=== PATIENT | male | born 1965 | race Caucasian/White ===

== ENCOUNTER → 2016-07-26 | Outpatient (CLI) | payer MEDICAID ==
[~2016-07-26] MED LIST: ADULT LOW DOSE81 MG PO; ALBUTEROL-200 PUFFS/ IH; BENZONATATE100 MG PO; CIPRODEX 0.3%-7.5 ML OT; CLOPIDOGREL75 MG PO; DOLOBID 500MG500 MG PO; FLEXERIL10 MG PO; FLUTICASONE 50M16 GM; INDOCIN25 M1 PO; LIPITOR40 MG PO; LISINOPRIL10 MG PO; LORTAB 5/3251 TAB PO; METFORMIN1000 MG PO; NAPROXEN SODIU500 MG PO; NEURONTIN100 MG PO; NOMEDS; NORCO 325 MG-51 TAB PO; ROBAXIN-750750 MG PO; SINGULAIR 10 MG10 MG PO; ULTRACET 325 MG1 TAB PO
[2016-07-26 08:46] LABS: LYMPH # 1.9 K/mm3 (0.7-4.5); LYMPH % 24.7 % (10-50)
[2016-07-26 09:10] LABS: HEMOGLOBIN 12.6 g/dL (14.1-18.0)
[2016-07-26 10:56] LABS: BUN 14 mg/dL (7-18)
[2016-07-26 11:42] LABS: GFR (ESTIMATED) 70 ML/MIN (>60)
[2016-07-27 09:38] LABS: Creatinine, Urine 41.1 mg/dL (Not Estab.); Microalbumin, Urine <3.0 ug/mL (Not Estab.)
== END ==
LOC: LAB 08:26
PROVIDERS: Nurse Practitioner Family
DX: E11.9 Type 2 diabetes mellitus without complications (principal)

== ENCOUNTER → 2016-10-22 | Outpatient (CLI) | payer MEDICAID ==
[2016-10-24 10:39] LABS: Creatinine, Urine 15.4 mg/dL (Not Estab.); Microalbumin, Urine <3.0 ug/mL (Not Estab.)
== END ==
LOC: LAB 14:06
PROVIDERS: Nurse Practitioner Family
DX: E11.9 Type 2 diabetes mellitus without complications (principal)

== ENCOUNTER → 2016-10-23 | Outpatient (CLI) | payer MEDICAID ==
[2016-10-23 12:46] LABS: HEMOGLOBIN 12.3 g/dL (14.1-18.0); LYMPH # 1.6 K/mm3 (0.7-4.5); LYMPH % 31.3 % (10-50)
[2016-10-23 15:23] LABS: BUN 10 mg/dL (7-18)
[2016-10-23 15:28] LABS: GFR (ESTIMATED) 78 ML/MIN (>60)
[2016-10-24 10:39] LABS: Creatinine, Urine 31.1 mg/dL (Not Estab.); Microalbumin, Urine <3.0 ug/mL (Not Estab.)
== END ==
LOC: LAB 12:04
PROVIDERS: Nurse Practitioner Family
DX: E11.9 Type 2 diabetes mellitus without complications (principal)

== ENCOUNTER → 2017-03-08 | Outpatient (CLI) | payer MEDICAID ==
[~2017-03-08] MED LIST changes: +PRILOSEC20 M1 PO
[2017-03-08 13:46] LABS: HEMOGLOBIN 11.5 g/dL (14.1-18.0); LYMPH # 1.4 K/mm3 (0.7-4.5); LYMPH % 29.1 % (10-50)
[2017-03-08 15:12] LABS: BUN 9 mg/dL (7-18)
[2017-03-08 15:13] LABS: GFR (ESTIMATED) 70 ML/MIN (>60)
== END ==
LOC: LAB 12:54
PROVIDERS: Nurse Practitioner Family
DX: E11.9 Type 2 diabetes mellitus without complications (principal); E66.3 Overweight

== ENCOUNTER 2017-03-19 11:37 | Emergency (ER) | payer MEDICAID ==
[~2017-03-19] VITALS: Ht 162.6 cm; Wt 64.4 kg
[~2017-03-19 11:37] MED LIST changes: -PRILOSEC20 M1 PO
[2017-03-19] MEDS ORDERED: PRILOSEC20 M1 PO (11:51)
--- NOTE | 2017-03-19 11:51 | Urgent Treatment Center Report ---
History of Present Issue Date/Time Seen by Provider 03/19/17 1150 Visit Reason Pt arrived:Walked Presenting Problem:PT STATES PAIN AND DRAINAGE TO LEFT EYE THAT BEGAN YESTERDAY. STATES EYE WAS SWELLED SHUT THIS MORNING Location if Accident: Onset of symptoms date/time:03/18/17/ or onset unknown for:MEDICAL HX UNKNOWN Have you (or family members/close friends) recently traveled outside the [facility]? N If Yes, where/when: Have you had exposure to infectious disease within the past month? TB? Other? Specify: Here w/ c/o left eye redness, drainage, and pain. Mild yesterday. Woke up worse this morning w/ eye crusted. Pain worsening. now behind left eye "feels like it is drawing up". Denies vision change, fever, malaise. No known injury. Sees Dr. Carter at [facility] for glasses. Didn't think to be seen there. No treatment prior to arrival Source patient Exam Limitations no limitations ALLERGIES Coded Allergies: No Known Allergies (08/11/15) Home Medications Reported Medications Lisinopril 10 MG PO DAILY #30 CLOPIDOGREL BISULFATE (Clopidogrel 75MG) 75 MG PO DAILY Atorvastatin Calcium (Atorvastatin) 40 MG PO DAILY Albuterol (Albuterol-Hfa Inhaler) 2 PUFF IH Q4HP PRN SHORTNESS OF BREATHE Aspirin (Adult Low Dose Aspirin EC) 81 MG PO DAILY Gabapentin (Neurontin) 600 MG PO TID METFORMIN HCL (Metformin) 500 MG PO BID OMEPRAZOLE MAGNESIUM (Prilosec 20MG) 20 MG PO BID History Medical History General CAD? No Angina: Yes MT: No Hypertension? Yes Hyperlipidemia? Yes CHF? No DVT? No PE? No COPD? No Asthma? No Anemia? No GERD? Yes Gastric ulcers? No GI Bleed? No Hernia? No Thyroid Problems? No Hypothyroidism? No CVA? No Seizures? No Diabetes? No Renal Insuffiency? No UTI? No Stones? No BPH? No GB Disease: No Nephritic Syndrome? No Asplenia? No Hepatitis? No Sickle Cell Disease? No Arthritis? Yes Migraines? No Cataracts? No Glaucoma? No MRSA? No HIV? No TB? No Anxiety? No Depression? No Cancer? No More? No Immunization HX DT/Tetanus 1-4 Years Ago 2014-16FSN Pneumonia Received In Past Surgical Hx Previous Surgery?Y BY PASS TY LEGS 08/21 EAR RT CABG AUG 2014 STENT TO L LEG Family History Family HX Diabetes Yes CAD Yes Hypertension Yes Hyperlipidemia Yes Cancer Yes TB No Social History Smoking Hx Smoker: Former Smoker Tobacco: No Packs/day 1 1/2 - 2 Packs Alcohol Alcohol: Yes Review of Systems All Other Systems Reviewed and Negative Constitutional see HPI Eyes see HPI, inflammation (left top lid), denies foreign body sensation, denies photophobia ENT see HPI. denies: ear pain, nose discharge, nose congestion, throat pain. Psychiatric/Neurological headache (mild, starting this morning), denies other (dizziness) Physical Exam Vital Signs Vital Signs Date Time Temp Pulse Resp B/P Pulse O2 O2 Flow FiO2 Ox Delivery Rate 03/19 1223 98.0 89 20 139/80 97 03/19 1144 98.0 89 20 139/80 97 General Appearance normal appearance, no obvious distress although eye redness and rapid blinking immediately obvious Eye Exam - right eye normal exam, left eye eyelid inflammation (mild left top lid), left eye other (see comment), bilateral eye PERRL, bilateral eye EOMI Comment left eye: mild scleral and conjunctival redness, evidence of crusting top and bottom lashes, blinking frequently Ear, Nose, Throat normal ENT inspection Respiratory Status No: respiratory distress. Cardiovascular no peripheral edema Neurologic alert, oriented x 3 Skin normal color, warm/dry Medical Decision Making LABS/Meds/Orders Pt receiving controlled substance in ED? No Consult MD Physician Consult Consult/PCP Dr. Carter, opthamologist Time Called 1200 Reason Pt. Condition Comments Providers are out to lunch. receptionist nurse feels certain he would want to send pt rather then pt be seen in ER. Have pt report to office to be seen promptly when they return from lunch. Departure Departure Time of Disposition 1217 Disposition DC Home or Self Care(routine) Clinical Impression Primary Impression: Redness of left eye Secondary Impressions: Left eye pain Condition STABLE Referrals NO REFERRAL Dr. Carter: [facility]: Can see you now. report directly to office and they will work you in as opposed to going to the ER for further evaluation. Patient Instructions DI for Eye Pain Additional Instructions Report directly to [facility] as you need further evaluation and management and they are willing to work you in as opposed to sending you to the ER. Based on [facility] guidelines, I am unable to provide that here. Discharge Counseling Counseled pt/family regarding diagnosis, follow up needs at [phone]
--- NOTE | 2017-03-19 11:51 | Urgent Treatment Center Report ---
History of Present Issue Date/Time Seen by Provider 03/19/17 1150 Visit Reason Pt arrived:Walked Presenting Problem:PT STATES PAIN AND DRAINAGE TO LEFT EYE THAT BEGAN YESTERDAY. STATES EYE WAS SWELLED SHUT THIS MORNING Location if Accident: Onset of symptoms date/time:03/18/17/ or onset unknown for:MEDICAL HX UNKNOWN Have you (or family members/close friends) recently traveled outside the [facility]? N If Yes, where/when: Have you had exposure to infectious disease within the past month? TB? Other? Specify: Here w/ c/o left eye redness, drainage, and pain. Mild yesterday. Woke up worse this morning w/ eye crusted. Pain worsening. now behind left eye "feels like it is drawing up". Denies vision change, fever, malaise. No known injury. Sees Dr. Carter at [facility] for glasses. Didn't think to be seen there. No treatment prior to arrival Source patient Exam Limitations no limitations ALLERGIES Coded Allergies: No Known Allergies (08/11/15) Home Medications Reported Medications Lisinopril 10 MG PO DAILY #30 CLOPIDOGREL BISULFATE (Clopidogrel 75MG) 75 MG PO DAILY Atorvastatin Calcium (Atorvastatin) 40 MG PO DAILY Albuterol (Albuterol-Hfa Inhaler) 2 PUFF IH Q4HP PRN SHORTNESS OF BREATHE Aspirin (Adult Low Dose Aspirin EC) 81 MG PO DAILY Gabapentin (Neurontin) 600 MG PO TID METFORMIN HCL (Metformin) 500 MG PO BID OMEPRAZOLE MAGNESIUM (Prilosec 20MG) 20 MG PO BID History Medical History General CAD? No Angina: Yes [place]: No Hypertension? Yes Hyperlipidemia? Yes CHF? No DVT? No PE? No COPD? No Asthma? No Anemia? No GERD? Yes Gastric ulcers? No GI Bleed? No Hernia? No Thyroid Problems? No Hypothyroidism? No CVA? No Seizures? No Diabetes? No Renal Insuffiency? No UTI? No Stones? No BPH? No GB Disease: No Nephritic Syndrome? No Asplenia? No Hepatitis? No Sickle Cell Disease? No Arthritis? Yes Migraines? No Cataracts? No Glaucoma? No MRSA? No HIV? No TB? No Anxiety? No Depression? No Cancer? No More? No Immunization HX DT/Tetanus 1-4 Years Ago 2014-16FSN Pneumonia Received In Past Surgical Hx Previous Surgery?Y BY PASS TY LEGS 08/21 EAR RT CABG AUG 2014 STENT TO L LEG Family History Family HX Diabetes Yes CAD Yes Hypertension Yes Hyperlipidemia Yes Cancer Yes TB No Social History Smoking Hx Smoker: Former Smoker Tobacco: No Packs/day 1 1/2 - 2 Packs Alcohol Alcohol: Yes Review of Systems All Other Systems Reviewed and Negative Constitutional see HPI Eyes see HPI, inflammation (left top lid), denies foreign body sensation, denies photophobia ENT see HPI. denies: ear pain, nose discharge, nose congestion, throat pain. Psychiatric/Neurological headache (mild, starting this morning), denies other (dizziness) Physical Exam Vital Signs Vital Signs Date Time Temp Pulse Resp B/P Pulse O2 O2 Flow FiO2 Ox Delivery Rate 03/19 1223 98.0 89 20 139/80 97 03/19 1144 98.0 89 20 139/80 97 General Appearance normal appearance, no obvious distress although eye redness and rapid blinking immediately obvious Eye Exam - right eye normal exam, left eye eyelid inflammation (mild left top lid), left eye other (see comment), bilateral eye PERRL, bilateral eye EOMI Comment left eye: mild scleral and conjunctival redness, evidence of crusting top and bottom lashes, blinking frequently Ear, Nose, Throat normal ENT inspection Respiratory Status No: respiratory distress. Cardiovascular no peripheral edema Neurologic alert, oriented x 3 Skin normal color, warm/dry Medical Decision Making LABS/Meds/Orders Pt receiving controlled substance in ED? No Consult MD Physician Consult Consult/PCP Dr. Carter, opthamologist Time Called 1200 Reason Pt. Condition Comments Providers are out to lunch. leather flesher feels certain he would want to send pt rather then pt be seen in ER. Have pt report to office to be seen promptly when they return from lunch. Departure Departure Time of Disposition 1217 Disposition DC Home or Self Care(routine) Clinical Impression Primary Impression: Redness of left eye Secondary Impressions: Left eye pain Condition STABLE Referrals NO REFERRAL Dr. Carter: [facility]: Can see you now. report directly to office and they will work you in as opposed to going to the ER for further evaluation. Patient Instructions DI for Eye Pain Additional Instructions Report directly to [facility] as you need further evaluation and management and they are willing to work you in as opposed to sending you to the ER. Based on [facility] guidelines, I am unable to provide that here. Discharge Counseling Counseled pt/family regarding diagnosis, follow up needs at [phone]
[2017-03-19 12:23] VITALS: BP 139/80
== END 2017-03-19 12:24 | disposition home or self-care (01) ==
LOC: UTC 11:37
DX: H57.8 Other specified disorders of eye and adnexa (principal); H57.12 Ocular pain, left eye; Z87.891 Personal history of nicotine dependence; I10 Essential (primary) hypertension; E78.5 Hyperlipidemia, unspecified; Z79.84 Long term (current) use of oral hypoglycemic drugs; Z79.02 Long term (current) use of antithrombotics/antiplatelets; Z79.82 Long term (current) use of aspirin; Z79.899 Other long term (current) drug therapy; K21.9 Gastro-esophageal reflux disease without esophagitis